=== PATIENT | male | born 1960 | race Caucasian/White ===

== ENCOUNTER 2020-02-21 07:27 | Outpatient (REF) | payer OTHER, SELFPAY | END 2020-02-21 07:28 | disposition home or self-care (01) | LOC: HO.HMGCLDS 07:27 | PROVIDERS: PCP Internal Medicine; Visit Provider Internal Medicine | DX: Z20.828 Contact with and (suspected) exposure to other viral communicable diseases (principal) | CPT/HCPCS: C9803; U0003 ==

== ENCOUNTER 2020-02-28 09:39 | Outpatient (REF) | payer OTHER, SELFPAY ==
[2020-02-28 10:27] LABS: MANUAL DIFF FLAG NO
[2020-02-28 10:36] LABS: Basophils Percent Auto 0.4 % (0-2); Eosinophils Absolute Auto 0.1 X10*3/uL (0.0-0.4); Eosinophils Percent Auto 1.3 % (0-4); Hematocrit 41.7 % (42-52); Hemoglobin 14.7 g/dl (14.0-18.0); Imm Gran Abs Auto 0.03 X10*3/uL (0.00-0.03); Imm Gran Pct Auto 0.4 % (0.0-0.4); Lymphocytes Absolute Auto 2.6 X10*3/uL (1.2-4.9); Lymphocytes Percent Auto 34.7 % (20-40); Mean Corpuscular HGB Conc 35.3 g/dl (31.0-36.0); Mean Corpuscular Hemoglobin 29.7 pg (27.0-33.0); Mean Corpuscular Volume 84.2 fL (80-98); Mean Platelet Volume 10.6 fL (9.4-12.4); Monocytes Absolute Auto 0.5 X10*3/uL (0.1-1.2); Neutrophils Absolute Auto 4.2 X10*3/uL (2.0-8.3); Neutrophils Percent Auto 56.2 % (45-73); Platelet Count 198 X10*3/uL (160-400); Red Blood Count 4.95 X10*6/uL (4.60-5.80); Red Cell Distribution Width 12.5 % (11.0-16.0); White Blood Count 7.5 X10*3/uL (4.8-10.8)
[2020-02-28 10:47] LABS: Alanine Aminotransferase 19 U/L (0-40); Albumin Level 4.4 g/dL (3.5-5.0); Alkaline Phosphatase 89 U/L (39-117); Anion Gap 13 (12-20); Aspartate Amino Transferase 16 U/L (5-37); Bilirubin Total 0.4 mg/dL (0.0-1.0); Blood Urea Nitrogen 16 mg/dL (9-16); Carbon Dioxide 26 mmol/L (22-29); Chloride 104 mmol/L (96-108); Cholesterol 123 mg/dL; Estimated Glomerular Filt Rate > 60; Glucose Fasting 209 mg/dL (60-99); HDL Cholesterol 34 mg/dL; LDL Cholesterol Calculated 70 mg/dl; Potassium 4.6 mmol/l (3.3-5.1); Sodium 138 mmol/L (135-145); Triglycerides 99 mg/dL
[2020-02-28 10:49] LABS: Estimated Average Glucose 212 mg/dL
[2020-02-28 10:54] LABS: Glucose Urine UA 100 MG/DL (NEG); Leukocyte Esterase Urine NEG (NEG); Nitrite Urine NEG (NEG); PH 5.5 (5.0-8.0); Specific Gravity - Urine >= 1.030 (1.005-1.025); Urine Blood NEG (NEG); Urine Ketones NEG (NEG); Urine Protein TRACE MG/DL (NEG-TRACE)
[2020-02-28 10:59] LABS: Appearance Urine CLEAR; Color Urine YELLOW
[2020-02-28 11:09] LABS: Prostate Specific Antigen 0.91 ng/mL (<0.05-4.0); Thyroid Stimulating Hormone 0.55 uIU/mL (0.32-4.0); Vitamin D 25-OH Total 46.6 ng/mL (>30)
[2020-02-28 11:47] LABS: Creatinine Urine 128.98 mg/dL; Microalbum/Creatinine Ratio Ur 147.3 ug/mg cr
== END 2020-02-28 09:40 | disposition home or self-care (01) ==
LOC: HO.LAB 09:39
PROVIDERS: PCP Internal Medicine; Visit Provider Internal Medicine
DX: E11.9 Type 2 diabetes mellitus without complications (principal); I10 Essential (primary) hypertension; I25.10 Atherosclerotic heart disease of native coronary artery without angina pectoris; E78.00 Pure hypercholesterolemia, unspecified; E55.9 Vitamin D deficiency, unspecified; N52.9 Male erectile dysfunction, unspecified
CPT/HCPCS: 36415; 80053; 80061; 81003; 82043; 82306; 83036; 84153; 84443; 85025

== ENCOUNTER 2020-07-21 07:25 | Outpatient (REF) | payer OTHER, SELFPAY ==
[2020-07-21 11:39] LABS: Estimated Average Glucose 243 mg/dL; Hemoglobin A1c % 10.1 %
[2020-07-21 12:02] LABS: Alanine Aminotransferase 29 U/L (0-40); Albumin Level 4.5 g/dL (3.5-5.0); Alkaline Phosphatase 91 U/L (39-117); Anion Gap 14 (12-20); Aspartate Amino Transferase 21 U/L (5-37); Bilirubin Total 0.9 mg/dL (0.0-1.0); Blood Urea Nitrogen 16 mg/dL (9-16); Calcium 9.4 mg/dL (8.4-10.2); Carbon Dioxide 24 mmol/L (22-29); Chloride 102 mmol/L (96-108); Cholesterol 138 mg/dL; Estimated Glomerular Filt Rate > 60; Glucose Fasting 271 mg/dL (60-99); HDL Cholesterol 34 mg/dL; LDL Cholesterol Calculated 62 mg/dl; Potassium 4.1 mmol/L (3.3-5.1); Sodium 136 mmol/L (135-145); Triglycerides 212 mg/dL
[2020-07-21 12:24] LABS: Microalbum/Creatinine Ratio Ur 94.5 ug/mg cr
== END 2020-07-21 07:26 | disposition home or self-care (01) ==
LOC: HO.HMGCLDS 07:25
PROVIDERS: PCP Internal Medicine; Visit Provider Internal Medicine
DX: E11.9 Type 2 diabetes mellitus without complications (principal); I25.10 Atherosclerotic heart disease of native coronary artery without angina pectoris; I10 Essential (primary) hypertension; E78.00 Pure hypercholesterolemia, unspecified
CPT/HCPCS: 36415; 80053; 80061; 82043; 83036

== ENCOUNTER 2020-10-22 06:55 | Outpatient (REF) | payer OTHER, SELFPAY ==
[2020-10-22 11:49] LABS: Estimated Average Glucose 206 mg/dL; Hemoglobin A1c % 8.8 %
[2020-10-22 11:59] LABS: Creatinine Urine 145.41 mg/dL; Glucose Urine UA NEG (NEG); Leukocyte Esterase Urine NEG (NEG); Microalbum/Creatinine Ratio Ur 50.8 ug/mg cr; Nitrite Urine NEG (NEG); Specific Gravity - Urine 1.025 (1.005-1.025); Urine Blood NEG (NEG); Urine Ketones NEG (NEG); Urine Protein NEG (NEG-TRACE)
[2020-10-22 12:05] LABS: Appearance Urine CLEAR; Color Urine YELLOW
[2020-10-22 12:39] LABS: RBC Urine 0 /HPF (0); Squamous Epithelial Cell Urine TRACE /LPF; WBC Urine 0-2 /HPF (0-4)
== END 2020-10-22 06:56 | disposition home or self-care (01) ==
LOC: HO.HMGCLDS 06:55
PROVIDERS: PCP Internal Medicine; Visit Provider Internal Medicine
DX: E11.65 Type 2 diabetes mellitus with hyperglycemia (principal)
CPT/HCPCS: 36415; 81001; 82043; 83036

== ENCOUNTER 2020-10-29 08:57 | Outpatient (REF) | payer OTHER, SELFPAY | END 2020-10-29 08:58 | disposition home or self-care (01) | LOC: HO.HMGCLDS 08:57 | PROVIDERS: PCP Internal Medicine; Visit Provider Internal Medicine | DX: Z20.822 Contact with and (suspected) exposure to COVID-19 (principal) | CPT/HCPCS: C9803; U0003; U0005 ==

== ENCOUNTER 2021-04-23 07:31 | Outpatient (REF) | payer OTHER, SELFPAY ==
[2021-04-23 11:23] LABS: MANUAL DIFF FLAG NO
[2021-04-23 11:28] LABS: Basophils Absolute Auto 0.1 X10*3/uL (0.0-0.2); Basophils Percent Auto 0.6 % (0-2); Eosinophils Absolute Auto 0.1 X10*3/uL (0.0-0.4); Eosinophils Percent Auto 1.2 % (0-4); Hematocrit 42.1 % (42.0-52.0); Hemoglobin 14.4 g/dl (14.0-18.0); Imm Gran Abs Auto 0.07 X10*3/uL (0.00-0.03); Imm Gran Pct Auto 0.9 % (0.0-0.4); Lymphocytes Absolute Auto 2.8 X10*3/uL (1.2-4.9); Lymphocytes Percent Auto 34.3 % (20-40); Mean Corpuscular HGB Conc 34.2 g/dl (31.0-36.0); Mean Corpuscular Hemoglobin 28.9 pg (27.0-33.0); Mean Corpuscular Volume 84.5 fL (80.0-98.0); Mean Platelet Volume 10.8 fL (9.4-12.4); Monocytes Absolute Auto 0.6 X10*3/uL (0.1-1.2); Monocytes Percent Auto 7.8 % (2-11); Neutrophils Absolute Auto 4.5 x10*3/uL (2.0-8.3); Neutrophils Percent Auto 55.2 % (45-73); Platelet Count 215 X10*3/uL (160-400); Red Blood Count 4.98 X10*6/uL (4.60-5.80); Red Cell Distribution Width 12.8 % (11.0-16.0); White Blood Count 8.2 X10*3/uL (4.8-10.8)
[2021-04-23 11:38] LABS: Estimated Average Glucose 223 mg/dL; Hemoglobin A1c % 9.4 %
[2021-04-23 12:02] LABS: Thyroid Stimulating Hormone 0.91 uIU/mL (0.32-4.0); Vitamin D 25-OH Total 41.9 ng/mL (>30)
[2021-04-23 12:03] LABS: Alanine Aminotransferase 20 U/L (0-40); Albumin Level 4.5 g/dL (3.5-5.0); Alkaline Phosphatase 87 U/L (39-117); Anion Gap 16 (12-20); Aspartate Amino Transferase 18 U/L (5-37); Bilirubin Total 0.6 mg/dL (0.0-1.0); Blood Urea Nitrogen 18 mg/dL (9-16); Calcium 9.6 mg/dL (8.4-10.2); Carbon Dioxide 23 mmol/L (22-29); Chloride 103 mmol/L (96-108); Cholesterol 128 mg/dL; Estimated Glomerular Filt Rate > 60; Glucose Fasting 230 mg/dL (60-99); HDL Cholesterol 33 mg/dL; LDL Cholesterol Calculated 59 mg/dl; Potassium 4.5 mmol/L (3.3-5.1); Sodium 137 mmol/L (135-145); Total Protein 7.4 g/dL (6.5-8.0); Triglycerides 180 mg/dL
== END 2021-04-23 07:32 | disposition home or self-care (01) ==
LOC: HO.HMGCLDS 07:31
PROVIDERS: Visit Provider Internal Medicine
DX: E11.65 Type 2 diabetes mellitus with hyperglycemia (principal); I25.10 Atherosclerotic heart disease of native coronary artery without angina pectoris; I10 Essential (primary) hypertension; E78.00 Pure hypercholesterolemia, unspecified; E55.9 Vitamin D deficiency, unspecified
CPT/HCPCS: 36415; 80053; 80061; 82306; 83036; 84443; 85025

== ENCOUNTER 2021-04-24 11:22 | Outpatient (REF) | payer OTHER, SELFPAY ==
[2021-04-24 13:51] LABS: Appearance Urine CLEAR; Color Urine YELLOW; Glucose Urine UA 100 MG/DL (NEG); Leukocyte Esterase Urine NEG (NEG); Nitrite Urine NEG (NEG); PH 5.5 (5.0-8.0); Specific Gravity - Urine >= 1.030 (1.005-1.025); Urine Blood NEG (NEG); Urine Ketones NEG (NEG); Urine Protein 1+ MG/DL (NEG-TRACE)
[2021-04-24 14:04] LABS: Mucus Urine TRACE /LPF; RBC Urine 0 /HPF (0); Squamous Epithelial Cell Urine TRACE /LPF; WBC Urine 0-2 /HPF (0-4)
[2021-04-24 14:12] LABS: Creatinine Urine 139.73 mg/dL; Microalbum/Creatinine Ratio Ur 158.8 ug/mg cr
== END 2021-04-24 11:23 | disposition home or self-care (01) ==
LOC: HO.HMGCLDS 11:22
PROVIDERS: Visit Provider Internal Medicine
DX: E11.65 Type 2 diabetes mellitus with hyperglycemia (principal); I25.10 Atherosclerotic heart disease of native coronary artery without angina pectoris; I10 Essential (primary) hypertension; E78.00 Pure hypercholesterolemia, unspecified
CPT/HCPCS: 81001; 82043

== ENCOUNTER 2021-09-03 10:24 | Day surgery (SDC) | payer OTHER, SELFPAY ==
[2021-08-26 15:30] VITALS: BMI 37.3
[2021-08-26 16:12] VITALS: BMI 36.8
--- NOTE | 2021-09-02 12:37 | P.CONAN_ITS ---
Documented by User: Shital Langley NP 09/02/21 12:38 HPI - Anesthesia Eval Consult details Narrative: 61yo M for [facility] Past Medical History Medical History Anxiety CAD (coronary artery disease) Diabetes HTN (hypertension) Hx of fracture of arm LINA on CPAP Surgical History Surgical History Hx of appendectomy Hx of colonoscopy Hx of heart artery stent Hx of LASIK Hx of sinus surgery Hx of thumb surgery Hx of tonsillectomy Social History Social History Are you a primary care director rn to a significant other at home: No Do you presently have visiting nurse or other home services: No Patient Tobacco Use Status: Former Tobacco user Quit Date: 2016 Tobacco use type: Cigarette Have you been hit, kicked, punched, or otherwise hurt by someone within the past year? If so, by whom?: No Are you DNR?: No Advance Directives: No Advance Directives Information Provided: Yes Advance Directives on File: No Meds Allergies Allergy/AdvReac Type Severity Reaction Status Date / Time No Known Allergies Allergy Verified 09/03/21 10:31 Home Medications Medication Instructions Recorded Confirmed Last Taken Type aspirin 81 mg chewable tablet 81 mg PO DAILY 08/26/21 08/26/21 09/01/21 History bupropion HCl 300 mg 24 hr tablet, 1 tab PO DAILY 08/26/21 08/26/21 Unknown History extended release dulaglutide 0.75 mg/0.5 mL 0.75 mg subcut QWEEK 08/26/21 08/26/21 Unknown History subcutaneous pen injector (Trulicity) lisinopril 40 mg tablet 1 tab PO DAILY 08/26/21 08/26/21 Unknown History metformin 750 mg tablet,extended 1 tab PO DAILY 08/26/21 08/26/21 Unknown History release 24 hr metoprolol succinate 50 mg 1 tab PO DAILY 08/26/21 08/26/21 Unknown History tablet,extended release 24 hr rosuvastatin 20 mg tablet 1 tab PO BEDTIME 08/26/21 08/26/21 Unknown History sertraline 50 mg tablet 1 tab PO DAILY 08/26/21 08/26/21 Unknown History Exam Exam Date and Time: September 02, 2021 1237 Height,Weight and Vital Signs: Height 5 ft 7 in Weight 106.594 kg Pertinent Lab Results Pertinent Lab Results: Laboratory Tests 04/23/21 04/23/21 07:40 07:40 WBC 8.2 Hgb 14.4 Hct 42.1 Plt Count 215 Sodium 137 Potassium 4.5 Chloride 103 Carbon Dioxide 23 BUN 18 H Creatinine 1.10 Assessment and Plan Assessment Anesthesia Assessment: Chart Reviewed Documented by User: Stone Bradley MD 09/03/21 10:48 [facility] Past Medical History Medical History Anxiety CAD (coronary artery disease) Diabetes HTN (hypertension) Hx of fracture of arm LINA on CPAP Family History Family history of problems with anesthesia: No Surgical History Surgical History Hx of appendectomy Hx of colonoscopy Hx of heart artery stent Hx of LASIK Hx of sinus surgery Hx of thumb surgery Hx of tonsillectomy History of Problems with Anesthesia: No Social History Social History Are you a primary care director rn to a significant other at home: No Do you presently have visiting nurse or other home services: No Patient Tobacco Use Status: Former Tobacco user Quit Date: 2016 Tobacco use type: Cigarette Have you been hit, kicked, punched, or otherwise hurt by someone within the past year? If so, by whom?: No Are you DNR?: No Advance Directives: No Advance Directives Information Provided: Yes Advance Directives on File: No Meds Allergies Allergy/AdvReac Type Severity Reaction Status Date / Time No Known Allergies Allergy Verified 09/03/21 10:31 Home Medications Medication Instructions Recorded Confirmed Last Taken Type aspirin 81 mg chewable tablet 81 mg PO DAILY 08/26/21 08/26/21 09/01/21 History bupropion HCl 300 mg 24 hr tablet, 1 tab PO DAILY 08/26/21 08/26/21 Unknown History extended release dulaglutide 0.75 mg/0.5 mL 0.75 mg subcut QWEEK 08/26/21 08/26/21 Unknown History subcutaneous pen injector (Trulicity) lisinopril 40 mg tablet 1 tab PO DAILY 08/26/21 08/26/21 Unknown History metformin 750 mg tablet,extended 1 tab PO DAILY 08/26/21 08/26/21 Unknown History release 24 hr metoprolol succinate 50 mg 1 tab PO DAILY 08/26/21 08/26/21 Unknown History tablet,extended release 24 hr rosuvastatin 20 mg tablet 1 tab PO BEDTIME 08/26/21 08/26/21 Unknown History sertraline 50 mg tablet 1 tab PO DAILY 08/26/21 08/26/21 Unknown History Exam Airway Mallampati Class: III TM Dist: >3cm Neck ROM: Full Assessment and Plan Final Anesthetic Review Family History of Problems with Anesthesia: No History of Problems with Anesthesia: No NPO: Yes ASA Class: III Final Preanesthetic Review: No Changes in Pt Med Stat, Meds/Allgs Chart Reviewed, Consent Obtained/Reviewed and Anes Risks/Benef Reviewed Patient Risk: Intermediate Procedure Risk: Low Anesthetic Plan Anesthetic Plan: MAC: Disposition: Standard PACU
--- NOTE | 2021-09-03 10:55 | MHC.SHP ---
Pre-Procedural Eval Section A Date of Service: 09/03/21 The patient is an INPATIENT: No Changes since office visit: No Cold of Flu in the past 2 weeks, No New Medical Problems, No Changes in Medication and No Patient answered all questions The History & Physical has been completed within 30 days and I have reviewed it.: Yes Section B Chief Complaint: screening Allergies: Allergies Allergy/AdvReac Type Severity Reaction Status Date / Time No Known Allergies Allergy Verified 09/03/21 10:31 Plan I have reviewed the history and physical and performed a pertinent physical examination on my patient. No changes have occurred unless specified.
[2021-09-03 10:59] VITALS: BP 140/95; PULSE 89; RESP 17; TEMP 36.1; O2SAT 98
[2021-09-03] MEDS: Lactated Ringers 1,000 ML 100 ML IVCONT (11:07)
--- NOTE | 2021-09-03 11:40 | PM.OP ---
Brief Operative Note Date of Service: 09/03/21 Pre-op diagnosis: screening Post-op diagnosis: same Procedure: colonoscopy Surgeon: Jesse Sharma Anesthesia: MAC Was an Shipping And Receiving Associate used for this Procedure?: No Estimated blood loss (mL): 0 Pathology: none sent Condition: stable Disposition: PACU
[2021-09-03 11:43] VITALS: BP 104/61; PULSE 86; RESP 16; TEMP 37.4; O2SAT 98
[2021-09-03 11:44] LABS: Glucose, Whole Blood 121 mg/dL (60-115)
[2021-09-03 11:58] VITALS: BP 133/76; PULSE 67; RESP 16; TEMP 37.4; O2SAT 96
--- NOTE | 2021-09-03 12:54 | OP_ITS ---
SURGEON: Jesse Sharma MD INDICATIONS: Colon cancer screening. PREOPERATIVE DIAGNOSIS: POSTOPERATIVE DIAGNOSIS: PROCEDURE PERFORMED: Colonoscopy to cecum. ESTIMATED BLOOD LOSS: COMPLICATIONS: ANESTHESIA: ASSISTANTS: SPECIMENS: MEDICATIONS: Monitored anesthesia care. DESCRIPTION OF PROCEDURE: History and physical were performed. The risks and benefits of the procedure were explained to the patient. Informed consent was obtained. The patient was placed in a left lateral decubitus position. A digital rectal exam was performed and was found to be normal. The Olympus pediatric video colonoscope was introduced into the rectum and advanced to the cecum without difficulty. The cecum was identified by transillumination, palpation, and identification of ileocecal valve. Examination was performed and the scope was removed. He tolerated the procedure well was taken to recovery area in stable condition. FINDINGS: The terminal ileum was not examined. Views of the cecum were somewhat limited by some undigested food material. This was washed and suctioned as best possible. No polyps were identified. The mucosa of the colon was normal. The quality of the prep was otherwise good. Retroflexed examination showed some small internal hemorrhoids. IMPRESSION: Negative screening colonoscopy. RECOMMENDATION: 1. Follow up as needed. 2. Repeat colonoscopy is recommended in 10 years for average risk individuals. MD HOLDEN Rider/RADHA / [id number] MTDD
== END 2021-09-03 12:18 | disposition home or self-care (01) ==
PROVIDERS: PCP Internal Medicine; Visit Provider Internal Medicine Gastroenterology
PROC: 0DJD8ZZ Inspection of Lower Intestinal Tract, Via Natural or Artificial Opening Endoscopic (ICD-10-PCS; CPT 45378; principal; 2021-09-03 11:20)
DX: Z12.11 Encounter for screening for malignant neoplasm of colon (principal); K64.8 Other hemorrhoids; I25.10 Atherosclerotic heart disease of native coronary artery without angina pectoris; Z98.61 Coronary angioplasty status; I10 Essential (primary) hypertension; G47.33 Obstructive sleep apnea (adult) (pediatric); E11.9 Type 2 diabetes mellitus without complications; Z79.84 Long term (current) use of oral hypoglycemic drugs; Z79.899 Other long term (current) drug therapy; Z87.891 Personal history of nicotine dependence
CPT/HCPCS: 45378; 82947

== ENCOUNTER 2021-10-04 07:22 | Outpatient (REF) | payer OTHER, SELFPAY ==
[2021-10-04 11:39] LABS: Alanine Aminotransferase 21 U/L (0-40); Albumin Level 4.5 g/dL (3.5-5.0); Alkaline Phosphatase 92 U/L (39-117); Anion Gap 11 (12-20); Aspartate Amino Transferase 18 U/L (5-37); Bilirubin Total 0.2 mg/dL (0.0-1.0); Blood Urea Nitrogen 27 mg/dL (9-16); Calcium 9.5 mg/dL (8.4-10.2); Carbon Dioxide 24 mmol/L (22-29); Chloride 106 mmol/L (96-108); Estimated Glomerular Filt Rate > 60; Glucose Fasting 199 mg/dL (60-99); Potassium 4.3 mmol/L (3.3-5.1); Sodium 137 mmol/L (135-145); Total Protein 7.2 g/dL (6.5-8.0)
[2021-10-04 11:45] LABS: Estimated Average Glucose 151 mg/dL; Hemoglobin A1c % 6.9 %
[2021-10-04 11:47] LABS: Appearance Urine TURBID; Color Urine YELLOW; Glucose Urine UA NEG (NEG); Leukocyte Esterase Urine NEG (NEG); Nitrite Urine NEG (NEG); Specific Gravity - Urine >= 1.030 (1.005-1.025); Urine Blood NEG (NEG); Urine Ketones NEG (NEG); Urine Protein NEG (NEG-TRACE)
[2021-10-04 12:00] LABS: Prostate Specific Antigen 1.02 ng/mL (<0.05-4.0)
[2021-10-04 12:35] LABS: Creatinine Urine 148.59 mg/dL; Microalbum/Creatinine Ratio Ur 56.5 ug/mg cr
[2021-10-04 13:40] LABS: Calcium Oxalate Crystals Urine 1+ /LPF
[2021-10-04 13:41] LABS: Amorphous Sediment Urine 4+ /LPF; WBC Urine 0 /HPF (0-4)
[2021-10-04 13:42] LABS: Bacteria Urine TRACE /LPF; RBC Urine 0 /HPF (0)
== END 2021-10-04 07:23 | disposition home or self-care (01) ==
LOC: HO.HMGCLDS 07:22
PROVIDERS: Visit Provider Internal Medicine
DX: Z12.5 Encounter for screening for malignant neoplasm of prostate (principal); E11.65 Type 2 diabetes mellitus with hyperglycemia
CPT/HCPCS: 36415; 80053; 81001; 82043; 83036; 84153

== ENCOUNTER 2022-03-11 18:06 | Outpatient (REF) | payer OTHER, SELFPAY ==
[2022-03-11 20:22] LABS: Influenza A PCR NEGATIVE (Negative); Influenza B PCR NEGATIVE (Negative); Resp Syncy Virus RNA Qual PCR NEGATIVE (Negative); SARS COV2 PCR INHOUSE NEGATIVE (Negative)
== END 2022-03-11 18:07 | disposition home or self-care (01) ==
LOC: HO.LAB 18:06
PROVIDERS: Visit Provider Physician Assistant Medical
DX: R05.9 Cough, unspecified (principal); Z20.822 Contact with and (suspected) exposure to COVID-19
CPT/HCPCS: 0241U

== ENCOUNTER 2022-03-24 07:02 | Outpatient (REF) | payer OTHER, SELFPAY ==
[2022-03-24 11:12] LABS: MANUAL DIFF FLAG NO
[2022-03-24 11:21] LABS: Basophils Absolute Auto 0.1 X10*3/uL (0.0-0.2); Basophils Percent Auto 0.6 % (0-2); Eosinophils Absolute Auto 0.2 X10*3/uL (0.0-0.4); Eosinophils Percent Auto 1.6 % (0-4); Hematocrit 43.6 % (42.0-52.0); Hemoglobin 14.4 g/dl (14.0-18.0); Lymphocytes Absolute Auto 3.5 X10*3/uL (1.2-4.9); Lymphocytes Percent Auto 33.9 % (20-40); Mean Corpuscular Hemoglobin 28.3 pg (27.0-33.0); Mean Corpuscular Volume 85.8 fL (80.0-98.0); Mean Platelet Volume 10.4 fL (9.4-12.4); Monocytes Absolute Auto 0.7 X10*3/uL (0.1-1.2); Monocytes Percent Auto 7.2 % (2-11); Neutrophils Absolute Auto 5.7 x10*3/uL (2.0-8.3); Neutrophils Percent Auto 55.7 % (45-73); Platelet Count 239 X10*3/uL (160-400); Red Blood Count 5.08 X10*6/uL (4.60-5.80); White Blood Count 10.2 X10*3/uL (4.8-10.8)
[2022-03-24 11:39] LABS: Appearance Urine Clear; Color Urine Yellow; Glucose Urine UA Negative (Negative); Leukocyte Esterase Urine Negative (Negative); Nitrite Urine Negative (Negative); PH 5.5 (5.0-9.0); Specific Gravity - Urine 1.025 (1.005-1.025); UMIC TRIGGER UA YES; Urine Blood Negative (Negative); Urine Ketones Negative (Negative); Urine Protein 100 (2+) mg/dL (Neg-Trace)
[2022-03-24 11:42] LABS: Estimated Average Glucose 203 mg/dL; Hemoglobin A1c % 8.7 %
[2022-03-24 11:43] LABS: Bacteria Urine None Seen (None Seen); RBC Urine 0-2 /HPF (0-2); Squamous Epithelial Cell Urine 0-2 /HPF (0-2); WBC Urine 0-5 /HPF (0-5)
[2022-03-24 13:09] LABS: Anion Gap 14 (12-20); Blood Urea Nitrogen 19 mg/dL (9-16); Calcium 9.9 mg/dL (8.4-10.2); Carbon Dioxide 26 mmol/L (22-29); Chloride 103 mmol/L (96-108); Cholesterol 119 mg/dL; Estimated Glomerular Filt Rate > 60; Glucose Fasting 170 mg/dL (60-99); HDL Cholesterol 31 mg/dL; LDL Cholesterol Calculated 59 mg/dl; Potassium 4.7 mmol/L (3.3-5.1); Sodium 138 mmol/L (135-145); Triglycerides 146 mg/dL
[2022-03-24 13:19] LABS: Creatinine Urine 209.56 mg/dL; Microalbum/Creatinine Ratio Ur 210.4 ug/mg cr
[2022-03-24 13:27] LABS: Thyroid Stimulating Hormone 1.11 uIU/mL (0.32-4.0); Vitamin D 25-OH Total 47.9 ng/mL (>30)
== END 2022-03-24 07:03 | disposition home or self-care (01) ==
LOC: HO.HMGCLDS 07:02
PROVIDERS: PCP Internal Medicine; Visit Provider Internal Medicine
DX: I10 Essential (primary) hypertension (principal); E78.00 Pure hypercholesterolemia, unspecified; I25.10 Atherosclerotic heart disease of native coronary artery without angina pectoris; E55.9 Vitamin D deficiency, unspecified; E11.65 Type 2 diabetes mellitus with hyperglycemia
CPT/HCPCS: 36415; 80048; 80061; 81001; 82043; 82306; 83036; 84443; 85025

== ENCOUNTER 2022-06-17 07:15 | Outpatient (REF) | payer OTHER, SELFPAY ==
[2022-06-17 11:53] LABS: Appearance Urine Turbid; Color Urine Yellow; Glucose Urine UA Negative (Negative); Leukocyte Esterase Urine Negative (Negative); Nitrite Urine Negative (Negative); PH 5.5 (5.0-9.0); Specific Gravity - Urine 1.025 (1.005-1.025); UMIC TRIGGER UA YES; Urine Blood Negative (Negative); Urine Ketones Negative (Negative); Urine Protein 100 (2+) mg/dL (Neg-Trace)
[2022-06-17 11:56] LABS: Bacteria Urine None Seen (None Seen); Hyaline Casts Urine 0-2 /LPF (0-2); RBC Urine 0-2 /HPF (0-2); Squamous Epithelial Cell Urine 0-2 /HPF (0-2); WBC Urine 0-5 /HPF (0-5)
[2022-06-17 12:08] LABS: Alanine Aminotransferase 28 U/L (0-40); Albumin Level 4.5 g/dL (3.5-5.0); Alkaline Phosphatase 88 U/L (39-117); Anion Gap 14 (12-20); Aspartate Amino Transferase 25 U/L (5-37); Bilirubin Total 0.5 mg/dL (0.0-1.0); Blood Urea Nitrogen 22 mg/dL (9-16); Calcium 9.7 mg/dL (8.4-10.2); Carbon Dioxide 24 mmol/L (22-29); Chloride 105 mmol/L (96-108); Cholesterol 124 mg/dL; Estimated Glomerular Filt Rate > 60; Glucose Fasting 184 mg/dL (60-99); HDL Cholesterol 32 mg/dL; LDL Cholesterol Calculated 56 mg/dl; Potassium 4.5 mmol/L (3.3-5.1); Sodium 138 mmol/L (135-145); Total Protein 7.1 g/dL (6.5-8.0); Triglycerides 182 mg/dL
[2022-06-17 12:10] LABS: Estimated Average Glucose 180 mg/dL; Hemoglobin A1c % 7.9 %
[2022-06-17 12:35] LABS: Creatinine Urine 174.96 mg/dL; Microalbum/Creatinine Ratio Ur 216.6 ug/mg cr
== END 2022-06-17 07:16 | disposition home or self-care (01) ==
LOC: HO.HMGCLDS 07:15
PROVIDERS: PCP Internal Medicine; Visit Provider Internal Medicine
DX: E11.65 Type 2 diabetes mellitus with hyperglycemia (principal)
CPT/HCPCS: 36415; 80053; 80061; 81001; 82043; 83036

== ENCOUNTER 2022-09-20 07:03 | Outpatient (REF) | payer OTHER, SELFPAY ==
[2022-09-20 11:24] LABS: Appearance Urine Clear; Color Urine Yellow; Glucose Urine UA Negative (Negative); Leukocyte Esterase Urine Negative (Negative); Nitrite Urine Negative (Negative); PH 5.5 (5.0-9.0); Specific Gravity - Urine 1.025 (1.005-1.025); UMIC TRIGGER UA YES; Urine Blood Negative (Negative); Urine Ketones Trace mg/dL (Negative); Urine Protein 30 (1+) mg/dL (Neg-Trace)
[2022-09-20 11:28] LABS: Bacteria Urine None Seen (None Seen); Hyaline Casts Urine 0-2 /LPF (0-2); RBC Urine 0-2 /HPF (0-2); Squamous Epithelial Cell Urine 0-2 /HPF (0-2); WBC Urine 0-5 /HPF (0-5)
[2022-09-20 11:41] LABS: Estimated Average Glucose 143 mg/dL; Hemoglobin A1c % 6.6 %
[2022-09-20 12:05] LABS: Creatinine Urine 192.66 mg/dL; Microalbum/Creatinine Ratio Ur 130.2 ug/mg cr
[2022-09-20 12:15] LABS: Alanine Aminotransferase 26 U/L (0-40); Albumin Level 4.2 g/dL (3.5-5.0); Alkaline Phosphatase 79 U/L (39-117); Anion Gap 15 (12-20); Aspartate Amino Transferase 19 U/L (5-37); Bilirubin Total 0.4 mg/dL (0.0-1.0); Blood Urea Nitrogen 16 mg/dL (9-16); Calcium 10.2 mg/dL (8.4-10.2); Carbon Dioxide 21 mmol/L (22-29); Chloride 107 mmol/L (96-108); Estimated Glomerular Filt Rate > 60; Glucose Fasting 158 mg/dL (60-99); Sodium 139 mmol/L (135-145)
== END 2022-09-20 07:04 | disposition home or self-care (01) ==
LOC: HO.HMGCLDS 07:03
PROVIDERS: PCP Internal Medicine; Visit Provider Internal Medicine
DX: E11.65 Type 2 diabetes mellitus with hyperglycemia (principal)
CPT/HCPCS: 36415; 80053; 81001; 82043; 83036

== ENCOUNTER 2022-12-29 07:22 | Outpatient (REF) | payer OTHER, SELFPAY ==
[2022-12-29 11:23] LABS: Appearance Urine Clear; Color Urine Yellow; Glucose Urine UA Negative (Negative); Leukocyte Esterase Urine Negative (Negative); Nitrite Urine Negative (Negative); UMIC TRIGGER UA YES; Urine Blood Negative (Negative); Urine Ketones Negative (Negative); Urine Protein 30 (1+) mg/dL (Neg-Trace)
[2022-12-29 11:27] LABS: Bacteria Urine None Seen (None Seen); RBC Urine 0-2 /HPF (0-2); Squamous Epithelial Cell Urine 0-2 /HPF (0-2); WBC Urine 0-5 /HPF (0-5)
[2022-12-29 11:31] LABS: Estimated Average Glucose 143 mg/dL; Hemoglobin A1c % 6.6 % (<6.0)
[2022-12-29 12:25] LABS: Alanine Aminotransferase 28 U/L (0-40); Albumin Level 4.5 g/dL (3.5-5.0); Alkaline Phosphatase 79 U/L (39-117); Anion Gap 13 (12-20); Aspartate Amino Transferase 27 U/L (5-37); Bilirubin Total 0.7 mg/dL (0.0-1.0); Blood Urea Nitrogen 16 mg/dL (9-16); Carbon Dioxide 24 mmol/L (22-29); Chloride 105 mmol/L (96-108); Estimated Glomerular Filt Rate > 60; Glucose Fasting 139 mg/dL (60-99); Potassium 4.1 mmol/L (3.3-5.1); Sodium 138 mmol/L (135-145); Total Protein 7.6 g/dL (6.5-8.0)
[2022-12-29 13:35] LABS: Creatinine Urine 166.01 mg/dL; Microalbum/Creatinine Ratio Ur 165.6 ug/mg cr (<30)
== END 2022-12-29 07:23 | disposition home or self-care (01) ==
LOC: HO.HMGCLDS 07:22
PROVIDERS: PCP Internal Medicine; Visit Provider Internal Medicine
DX: E11.9 Type 2 diabetes mellitus without complications (principal); I10 Essential (primary) hypertension; E78.00 Pure hypercholesterolemia, unspecified; I25.10 Atherosclerotic heart disease of native coronary artery without angina pectoris; E55.9 Vitamin D deficiency, unspecified; F32.9 Major depressive disorder, single episode, unspecified; N52.9 Male erectile dysfunction, unspecified
CPT/HCPCS: 36415; 80053; 81001; 82043; 82570; 83036

== ENCOUNTER 2023-06-26 06:48 | Outpatient (REF) | payer OTHER, SELFPAY ==
[2023-06-26 10:26] LABS: MANUAL DIFF FLAG NO
[2023-06-26 10:30] LABS: Basophils Percent Auto 0.5 % (0-2); Eosinophils Absolute Auto 0.1 X10*3/uL (0.0-0.4); Eosinophils Percent Auto 1.6 % (0-4); Hematocrit 41.9 % (42.0-52.0); Hemoglobin 14.1 g/dl (14.0-18.0); Imm Gran Abs Auto 0.03 X10*3/uL (0.00-0.03); Imm Gran Pct Auto 0.4 % (0.0-0.4); Lymphocytes Absolute Auto 2.7 X10*3/uL (1.2-4.9); Lymphocytes Percent Auto 35.5 % (20-40); Mean Corpuscular HGB Conc 33.7 g/dl (31.0-36.0); Mean Corpuscular Volume 86.2 fL (80.0-98.0); Mean Platelet Volume 11.4 fL (9.4-12.4); Monocytes Absolute Auto 0.5 X10*3/uL (0.1-1.2); Monocytes Percent Auto 7.1 % (2-11); Neutrophils Absolute Auto 4.2 x10*3/uL (2.0-8.3); Neutrophils Percent Auto 54.9 % (45-73); Platelet Count 200 X10*3/uL (160-400); Red Blood Count 4.86 X10*6/uL (4.60-5.80); Red Cell Distribution Width 13.8 % (11.0-16.0); White Blood Count 7.6 X10*3/uL (4.8-10.8)
[2023-06-26 10:42] LABS: Estimated Average Glucose 140 mg/dL; Hemoglobin A1c % 6.5 % (<6.0)
[2023-06-26 10:55] LABS: Alanine Aminotransferase 18 U/L (0-40); Albumin Level 4.3 g/dL (3.5-5.0); Alkaline Phosphatase 67 U/L (39-117); Anion Gap 12 (12-20); Aspartate Amino Transferase 19 U/L (5-37); Bilirubin Total 0.7 mg/dL (0.0-1.0); Blood Urea Nitrogen 21 mg/dL (9-16); Calcium 9.9 mg/dL (8.4-10.2); Carbon Dioxide 25 mmol/L (22-29); Chloride 107 mmol/L (96-108); Cholesterol 102 mg/dL (<200); Estimated Glomerular Filt Rate > 60; Glucose Fasting 120 mg/dL (60-99); HDL Cholesterol 37 mg/dL (>40); LDL Cholesterol Calculated 49 mg/dL (<100); Sodium 140 mmol/L (135-145); Total Protein 7.1 g/dL (6.5-8.0); Triglycerides 84 mg/dL (<150)
[2023-06-26 11:04] LABS: Appearance Urine Clear; Color Urine Yellow; Glucose Urine UA Negative (Negative); Leukocyte Esterase Urine Negative (Negative); Nitrite Urine Negative (Negative); PH 5.5 (5.0-9.0); Urine Blood Negative (Negative); Urine Ketones Negative (Negative); Urine Protein Trace mg/dL (Neg-Trace)
[2023-06-26 11:05] LABS: PSA,Total (Free>4and<10) 1.03 ng/mL (0.00-4.00)
[2023-06-26 11:07] LABS: Bacteria Urine None Seen (None Seen); Hyaline Casts Urine 0-2 /LPF (0-2); RBC Urine 0-2 /HPF (0-2); Squamous Epithelial Cell Urine 0-2 /HPF (0-2); WBC Urine 0-5 /HPF (0-5)
[2023-06-26 11:12] LABS: Vitamin D 25-OH Total 67.8 ng/mL (>30)
[2023-06-26 11:14] LABS: Creatinine Urine 109.24 mg/dL; Microalbum/Creatinine Ratio Ur 122.6 ug/mg cr (<30)
== END 2023-06-26 06:49 | disposition home or self-care (01) ==
LOC: HO.HMGCLDS 06:48
PROVIDERS: PCP Internal Medicine; Visit Provider Internal Medicine
DX: Z12.5 Encounter for screening for malignant neoplasm of prostate (principal); I10 Essential (primary) hypertension; E78.00 Pure hypercholesterolemia, unspecified; I25.10 Atherosclerotic heart disease of native coronary artery without angina pectoris; E11.9 Type 2 diabetes mellitus without complications; E55.9 Vitamin D deficiency, unspecified
CPT/HCPCS: 36415; 80053; 80061; 81001; 82043; 82306; 82570; 83036; 84153; 84443; 85025

== ENCOUNTER 2024-01-17 07:34 | Outpatient (REF) | payer OTHER, SELFPAY ==
[2024-01-17 10:07] LABS: MANUAL DIFF FLAG NO
[2024-01-17 10:19] LABS: Basophils Absolute Auto 0.1 X10*3/uL (0.0-0.2); Basophils Percent Auto 0.6 % (0-2); Eosinophils Absolute Auto 0.1 X10*3/uL (0.0-0.4); Eosinophils Percent Auto 1.1 % (0-4); Hematocrit 39.6 % (42.0-52.0); Hemoglobin 14.1 g/dl (14.0-18.0); Imm Gran Abs Auto 0.05 X10*3/uL (0.00-0.03); Imm Gran Pct Auto 0.6 % (0.0-0.4); Lymphocytes Absolute Auto 2.3 X10*3/uL (1.2-4.9); Lymphocytes Percent Auto 27.6 % (20-40); Mean Corpuscular HGB Conc 35.6 g/dl (31.0-36.0); Mean Corpuscular Hemoglobin 30.3 pg (27.0-33.0); Mean Platelet Volume 10.5 fL (9.4-12.4); Monocytes Absolute Auto 0.5 X10*3/uL (0.1-1.2); Monocytes Percent Auto 6.2 % (2-11); Neutrophils Absolute Auto 5.4 x10*3/uL (2.0-8.3); Neutrophils Percent Auto 63.9 % (45-73); Platelet Count 230 X10*3/uL (160-400); Red Blood Count 4.66 X10*6/uL (4.60-5.80); Red Cell Distribution Width 12.4 % (11.0-16.0); White Blood Count 8.5 X10*3/uL (4.8-10.8)
[2024-01-17 10:19] LABS: Appearance Urine Clear; Color Urine Yellow; Glucose Urine UA Negative (Negative); Leukocyte Esterase Urine Negative (Negative); Nitrite Urine Negative (Negative); UMIC TRIGGER UA YES; Urine Blood Negative (Negative); Urine Ketones Negative (Negative); Urine Protein 30 (1+) mg/dL (Neg-Trace)
[2024-01-17 10:22] LABS: Bacteria Urine None Seen (None Seen); RBC Urine 0-2 /HPF (0-2); Squamous Epithelial Cell Urine 0-2 /HPF (0-2); WBC Urine 0-5 /HPF (0-5)
[2024-01-17 10:30] LABS: Estimated Average Glucose 134 mg/dL; Hemoglobin A1C 166.1621 umol/L; Hemoglobin A1c % 6.3 % (<6.0)
[2024-01-17 10:39] LABS: Alanine Aminotransferase 32 U/L (0-40); Albumin Level 4.2 g/dL (3.5-5.0); Alkaline Phosphatase 77 U/L (39-117); Anion Gap 13 (12-20); Aspartate Amino Transferase 34 U/L (5-37); Bilirubin Total 0.4 mg/dL (0.0-1.0); Blood Urea Nitrogen 17 mg/dL (9-16); Calcium 9.7 mg/dL (8.4-10.2); Carbon Dioxide 22 mmol/L (22-29); Chloride 108 mmol/L (96-108); Cholesterol 124 mg/dL (<200); Estimated Glomerular Filt Rate > 60; Glucose Fasting 138 mg/dL (60-99); HDL Cholesterol 33 mg/dL (>40); LDL Cholesterol Calculated 51 mg/dL (<100); Potassium 4.2 mmol/L (3.3-5.1); Sodium 139 mmol/L (135-145); Total Protein 7.3 g/dL (6.5-8.0); Triglycerides 200 mg/dL (<150)
[2024-01-17 11:16] LABS: Creatinine Urine 192.93 mg/dL; Microalbum/Creatinine Ratio Ur 160.6 ug/mg cr (<30)
== END 2024-01-17 07:35 | disposition home or self-care (01) ==
LOC: HO.HMGCLDS 07:34
PROVIDERS: PCP Internal Medicine; Visit Provider Internal Medicine
DX: I10 Essential (primary) hypertension (principal); E78.00 Pure hypercholesterolemia, unspecified; I25.10 Atherosclerotic heart disease of native coronary artery without angina pectoris; E11.9 Type 2 diabetes mellitus without complications; E55.9 Vitamin D deficiency, unspecified
CPT/HCPCS: 36415; 80053; 80061; 81001; 82043; 82570; 83036; 85025

== ENCOUNTER 2024-04-23 15:11 | Outpatient (AMB) | payer OTHER, SELFPAY ==
--- NOTE | 2024-04-23 15:16 | A.OFFPC_ITS ---
Vital Signs 04/23/24 15:32 Height 5 ft 5.25 in Weight 227 lb BMI 37.5 BP 147/70 H Blood Pressure Location Rt brachial Pulse 82 Pulse Source Pulse Oximeter Temp 97.2 F Pulse Oximetry (%) 97 Intake Visit Reasons: 3 month follow up Intake Note: right hand shakes going on for about 6 months it comes and goes Allergies No Known Allergies Allergy (Verified 04/24/24 06:04) Medication List - Last Reconciled 04/24/24 by Law Leong MD aspirin 81 mg PO DAILY bupropion HCl XL 1 tab PO DAILY diclofenac sodium 75 mg PO BID PRN dulaglutide (Trulicity) 0.75 mg subcut QWEEK lisinopril 1 tab PO DAILY metformin ER 1 tab PO DAILY metoprolol succinate ER 1 tab PO DAILY rosuvastatin 1 tab PO BEDTIME HPI 3 month follow up HPI Details 63-year-old male presents to the office to discuss his chronic medical conditions. Patient has history of hypertension, diabetes and elevated cholesterol. He is compliant with all medications and reporting no side effects. Able to function and do all activities of daily living. Over the past few months patient is reporting a slight tremor in the right hand. He has noticed that his handwriting is getting worse. However he is able to button his shirts, comb his hair, shave with no difficulty. He is able to eat with utensils. No difficulty walking. He reports no history of fall. [facility] Medical History (Updated 04/24/24 @ 06:11 by Law Leong MD) Anxiety LINA on CPAP Hx of fracture of arm Diabetes CAD (coronary artery disease) HTN (hypertension) Surgical History Hx of colonoscopy Hx of sinus surgery Hx of thumb surgery Hx of LASIK Hx of tonsillectomy Hx of appendectomy Hx of heart artery stent Social History Are you a primary health care legal assistant to a significant other at home: No Do you presently have visiting nurse or other home services: No Patient Tobacco Use Status: Former Tobacco user Tobacco use type: Cigarette Physical exam (Primary Care) Vital Signs: Last Vital Signs Temp 97.2 F 04/23/24 15:32 Pulse 82 02/11/25 15:32 BP 147/70 H 04/23/24 15:32 Pulse Ox 97 04/23/24 15:32 BMI result Body Mass Index 37.5 Tobacco/Smoking Status: Tobacco use Status Patient Tobacco Use Status Former Tobacco user 04/23/24 15:34 Tobacco use type Cigarette 04/23/24 15:34 Const General: cooperative and healthy appearing Nutritional Appearance: well nourished Orientation/consciousness: patient oriented x3 Limitations: no limitations HENMT Head: Yes normal to inspection Eyes General: appearance normal, both eyes and all related structures Neck Neck: Yes normal visual inspection Chest Chest palpation & inspection: normal palpation of entire chest wall Resp Effort & Inspection: normal respiratory effort Neuro Other: Patient was asked to stretches hands out and keep the hands facing downwards. Fine tremor in the right hand noticed. General: patient oriented x3 Cranial nerves: Yes CN's II-XII intact bilaterally Cognition (Neuro): normal cognition Gait exam (Neuro): Normal gait present Motor exam (neuro): 5/5 motor strength present throughout Coding Level of Care Code New Pt Level 4 (19232) Complex EM visit Add On G2211 Diagnoses Anxiety F41.9 HTN (hypertension) I10 Diabetes E11.9 LINA on CPAP G47.33; Z99.89 Assessment & Plan Assessment & Plan (1) Anxiety: Code(s): F41.9 - Anxiety disorder, unspecified Category: Medical Plan: Continue medications at same dosage. (2) HTN (hypertension): Code(s): I10 - Essential (primary) hypertension Category: Medical Plan: Blood pressure is stable. Continue medications at same dosage. (3) Diabetes: Code(s): E11.9 - Type 2 diabetes mellitus without complications Category: Medical Plan: A1c is in range. Continue medications at same dosage. (4) LINA on CPAP: Code(s): G47.33 - Obstructive sleep apnea (adult) (pediatric); Z99.89 - Dependence on other enabling machines and devices Category: Medical Plan: Patient has adjusted well to the CPAP. To continue the same.
[2024-04-23 15:32] VITALS: BP 147/70; PULSE 82; TEMP 36.2; O2SAT 97; BMI 37.5
--- OUTSIDE RECORDS SUMMARY | 2024-04-23 15:58 | XMS_ITS ---
[facility] Address [address] [place] [address] Care Team Providers Care Slip Sheeter Name Role Phone Vito Campuzano MD Primary Care Provider Unavail able Black, Angelic Unavailable [phone] Allergies No Known Allergies REASON FOR VISIT Pcp- 02/02, Open sore - Toe Medications Medication SIG (Take, Route, Frequency, Duration) Notes Start Date End Date Status Toprol XL 50 MG 1 tablet Orally Once a day Active buPROPion HCl Active Crestor 20 MG 1 tablet Orally Once a day Active Lisinopril 40 MG 1 tablet Orally Once a day Active Aspirin 81 MG 1 tablet Orally Once a day Active Cephalexin 500 MG 1 capsule Orally twi ce a day for 10 days 03/16/2023 Not-Taking metFORMIN HCl Active Trulicity 3 MG/0.5ML as directed Subcutaneous Active Social History Tobacco Use: Social History Observation Description Date Details (start date - stop date) Former Smoker NA - NA Tobacco Use/Smoking Question Answer Notes Are you a: former smoker Additional Findings: Tobacco Non-User Current no n-smoker Alcohol Screen Question Answer Notes Did you have a drink contain ing alcohol in the past year? Yes How often did you have a dri nk containing alcohol in the past year? 2 to 4 times a month (2 points) Points 2 Interpretation Negative Tobacco use other than smoking: Question Answer Notes Are you an other tobacco user? No Problems Problem Type SNOMED Code ICD Code Onset Dates Problem Status W/U Status Risk Notes Problem Ulcer of toe of right foot (disorder) ([id number]) Skin ulcer of toe of right foot, limited to breakdown of skin (L97.511) Active confirmed Nonapplicable Vital Signs Height 5 ft 6 in in 03/30/2023 Weight 230 lbs 03/30/2023 BMI 37.12 kg/m2 03/30/2023 Blood pressure systolic 122 mm Hg 03/30/19 24 Blood pressure diastolic 82 mm Hg 024 Procedures Procedure Date Ordered Date Performed Result Body Sit e 89614- Debride <25 sq cm 03/30/2023 N/A Encounters Encounter Location Date Provider Diagnosis [facility] [address] [address] 03/30/2023 Angelic Ti Skin ulcer of toe of right foot, limited to breakdown of skin L97.511 Assessments Encounter Date Diagnosis (ICD Code) Assessment Notes Treatment Notes Treatment Clinical Notes Section Notes 03/30/2023 Skin ulcer of toe of right foot, limited to breakdown of skin (ICD-10 - L97.511) Nonapplicable Patient Educated with: WOUND CARE INSTRUCTIONS.p df (WOUND CARE INSTRUCTIONS.p df) 03/30/2023 Other Plan Of Treatment Treatment Notes Assessment Notes Skin ulcer of toe of right f oot, limited to breakdown of skin Patient Educated with: WOUND CARE INSTRUCTIONS.pdf (WOUND CARE INSTRUCTIONS.pdf) Pending Test Test Name Order Date 14054- Debride <25 sq cm 03/30/2023 Next Appt Details Follow Up: prn, Reason: Procedure Notes * Category Sub-Category Detail Notes Debride skin< 25 sq cm Open wound Physician of record performed open wound selective debridement of first 25 sq cm or less, of devitilized necrotic/nonviable soft tissue, fibrin, and exudate extending from the epidermis through the dermis, utilizing sharp dissection with sterile 15 blade, and/or tissue nippers. Sterile antibiotic dressing applied, ANESTHESIA- was accomplished TOPICALLY with Lidocaine Hydrochloride Jelly 2 percent. Hemostasis was achieved through direct pressure. Post debridement measurements:4 mm x 3 mm x 2 mm. Character of the wound post debridement is stable (38090) Progress Notes * Yury HADDAD MDOB: 2 (62 yo M)Acc No.[id number]:03/30/2023 Progress Notes Patient:?Yury Haddad Provider:?Angelic Luke DPM :1960???Age:62 Y???Sex:Male Jared e:03/30/2023 Address:[address] [place] [address] [id number] Pcp:Vito Campuzano MD Subjective: * Chief Complaints: * ???Pcp- 02/02Open sore - Toe * HPI: ???Skin problems:?Treatments:?Topical abx , soaks.? * Medical History:? * Surgical History:?Orthopedic Surgery appendectomy trigger finger release vasectomy torn bicept Ingrown Toe Nail * Hospitalization/Major Diagno stic Procedure:?Denies Past Hospitalization * Family History:?Mother: chapin barboza.?Father: , heart attack.? * Social History:?Tobacco Use:?Tobacco Use/Smoking?Are you a:?former smoker ?Additional Findings: Tobacco Non-User?Current non-smoker ?Tobacco use other than smoking?Are you an other tobacco user??No ???Drugs/Alcohol:?Drugs?Have you used drugs other than those for medical reasons in the past 12 months??No ?Alcohol Screen?Did you have a drink containing alcohol in the past year??Yes ?How often did you have a drink containing alcohol in the past year??2 to 4 times a month (2 points) ?Points?2 ?Interpretation?Negative ???Miscellaneous:?Caffeine: yes, 2-3 cups per day. ?no Children. ?Exercise: yes, walking. ?Marital status: . ?Occupation: Works [id number]. * Medications:?TakingTrulicity 3 MG/0.5ML Solution Pen-injector as directed Subcutaneous metFORMIN HCl Aspirin 81 MG Tablet Chewable 1 tablet Orally Once a dayLisinopril 40 MG Tablet 1 tablet Orally Once a daybuPROPion HCl Toprol XL 50 MG Tablet Extended Release 24 Hour 1 tablet Orally Once a dayCrestor 20 MG Tablet 1 tablet Orally Once a dayTaking Trulicity 3 MG/0.5ML Solution Pen-injector as directed Subcutaneous Taking metFORMIN HCl Taking Aspirin 81 MG Tablet Chewable 1 tablet Orally Once a dayTaking Lisinopril 40 MG Tablet 1 tablet Orally Once a dayTaking buPROPion HCl Taking Toprol XL 50 MG Tablet Extended Release 24 Hour 1 tablet Orally Once a dayTaking Crestor 20 MG Tablet 1 tablet Orally Once a dayNot-Taking/PRNCephalexin 500 MG Capsule 1 capsule Orally twice a dayMedication List reviewed and reconciled with the patientNot-Taking/PRN Cephalexin 500 MG Capsule 1 capsule Orally twice a dayMedication List reviewed and reconciled with the patient * Allergies:?N.K.D.A.yes[Aller gies Verified] Objective: * Vitals:?Ht: 5 ft 6 in, Wt:23 0, BMI:37.12, Shoe size:10.5, BP:122/82 mm Hg, BS: Not taken. * ???Past Orders: ???Lab:HEMOGLOBIN A1C (GLYCO HEMOGLOBIN) (Order Date - 12/12/2022) (Collection Date - 12/12/2022) ? Value Reference Range ?TOTAL HEMOGLOBIN (HGBA1C) 6.8 * Examination: ???Ophthalmology Referral: ?DIABETES EYE EXAM?Dermatologic: ?ULCER:? LOCATION,MedialT5, , SIZE, 8mm X 3 mm X 2mm, BASE, granular, RIM, hyperkeratotic, UNDERMINING, absent, TRACKING, Full thickness breakdown of skin, DRAINAGE, serosanguineous, mild, NECROTIC TISSUE, loosely-adherent, yellow slough, MALODOR, absent, CALOR, absent, ERYTHEMA, absent, PAIN ON PALPATION, present.? Assessment: * Assessment: 1.?Skin ulcer of toe of righ t foot, limited to breakdown of skin - L97.511, Response to treatment, Nonapplicable? Plan: * Treatment: * Procedures:?Debride skin< 25 sq cm:?Open wound?Physician of record performed open wound selective debridement of first 25 sq cm or less, of devitilized necrotic/nonviable soft tissue, fibrin, and exudate extending from the epidermis through the dermis, utilizing sharp dissection with sterile 15 blade, and/or tissue nippers. Sterile antibiotic dressing applied, ANESTHESIA- was accomplished TOPICALLY with Lidocaine Hydrochloride Jelly 2 percent. Hemostasis was achieved through direct pressure. Post debridement measurements:4 mm x 3 mm x 2 mm. Character of the wound post debridement is stable (40245).? * Procedure Codes:?07630 ACTIV E WOUND CARE/20 CM OR <, Modifiers: T5 * Follow Up:?prn * Images: * Sign off status: Completed true * Provider:?Angelic Luke DPM Date:?2023 Generated for Sanna land/Pino/eTransmitting on:?04/23/2024 03:58 PM EST History and Physical Notes * HPI (History of Present Illness) Category Sub-Category Detail Notes Category Not es Skin problems Treatments: Topical abx , soaks Examination Category Sub-Category Detail Notes Category Not es Dermatologic ULCER: LOCATION,MedialT 5, , SIZE, 8mm X 3 mm X 2mm, BASE, granular, RIM, hyperkeratotic, UNDERMINING, absent, TRACKING, Full thickness breakdown of skin, DRAINAGE, serosanguineous, mild, NECROTIC TISSUE, loosely-adherent, yellow slough, MALODOR, absent, CALOR, absent, ERYTHEMA, absent, PAIN ON PALPATION, present Ophthalmology Referral DIABETES EYE EXAM Diabeti c Retinopathy Screening:: Yes 03/28/23 Findings of Diabetic Eye Exam:: no retin opathy
--- OUTSIDE RECORDS SUMMARY | 2024-04-23 15:58 | XMS_ITS ---
[facility] [place] Address [address] [facility] [place] [address] Care Team Providers Care Trauma Therapist Name Role Phone Vito Campuzano MD Primary Care Provider Unavail able Black, Angelic Unavailable [phone] Allergies No Known Allergies REASON FOR VISIT Pcp- 03/04, Ingrown nail Medications Medication SIG (Take, Route, Fr equency, Duration) Notes Start Date End Date Status Lisinopril 40 MG 1 tablet Orally Once a day Active Cephalexin 500 MG 1 capsule Orally twi ce a day for 10 days 03/16/2023 Active Trulicity 3 MG/0.5ML as directed Subcutaneous Active metFORMIN HCl Active Aspirin 81 MG 1 tablet Orally Once a day Active buPROPion HCl Active Toprol XL 50 MG 1 tablet Orally Once a day Active Crestor 20 MG 1 tablet Orally Once a day Active Social History Tobacco Use: Social History [...] Are you an other tobacco user? No Vital Signs Height 5 ft 6 in in 03/16/2023 Weight 230 lbs 03/16/2023 BMI 37.12 kg/m2 03/16/2023 Blood pressure systolic 122 mm Hg 01/04/20 24 Blood pressure diastolic 78 mm Hg 024 Procedures Procedure Date Ordered Date Performed Result Body Sit e [id number] 03/16/2023 N/A Encounters Encounter Location Date Provider Diagnosis [facility] [address] [place] [address] 03/16/2023 Angelic Black Ingrown nail L60.0 Assessments Encounter Date Diagnosis (ICD Code) Assessment Notes Treatment Notes Treatment Clinical Notes Section Notes 03/16/2023 Ingrown nail (ICD-10 - L60.0) Plan Of Treatment Medication Medication Name Sig Start Date Stop Date Notes Cephalexin 500 MG 1 capsule Orally twice a day for 10 days 03/16/2023 Pending Test Test Name Order Date [id number] 03/16/2023 Next Appt Details Follow Up: 2-4 Weeks, Reason : Procedure Notes * Category Sub-Category Detail Notes Matricectomy (OP NOTE) Consent The patie nt was brought to the examination room and placed on the table in a supine position. The pre/so/postoperative course, risks, complications and alternatives were discussed, understood and accepted by the patient. No guarantees were given regarding the surgical outcome Procedure A digital prep with alcohol or betadine was performed. 3cc of 1 percent Xylocaine Plain local anesthetic was administered to the toe via digital block utilizing aseptic technique. A digital touriquet was applied. The affected toenail portion was undermined, incised and resected to the eponychium and matrix. It was noted to be significantly incurvated and hypertrophied. The nailbed and matrix were curetted and the nail groove, bed and matrix were cauterized with Phenol, 3 applications of 30 seconds each from a cotton tip applicator, no underling bone was identified. The surrounding skin was protected from the Phenol with Bacitracin ointment. The tourniquet was released and capillary fill time was intact to the digit. A sterile Bacitracin dressing was applied Disposition Disposition: The pat ient tolerated the procedure and anesthesia well and left in good condition, alert, oriented and stable in no acute distress. Local wound care instructions were discussed and dispensed. There were no complications and the prognosis is favorable, Recommended alternating/staggering Tylenol XS 2 tabs and Motrin 600mg q 6 hrs ea for discomfort, Rx narcotic postop pain meds were deferred Location Medial nail border , T5 Progress Notes * Yury HADDAD: 2 (62 yo M)Acc No.[id number]:03/16/2023 Progress Note Patient:?Yury Haddad Provider:?Angelic Luke DPM :1960???Age:62 Y???Sex:Male Jared e:03/16/2023 Address:[address] [place] [address] [facility] Pcp:Vito Campuzano MD Subjective: * Chief Complaints: * ???Pcp- 03/04Ingrown nail * Medical History:? * Surgical History:?Orthopedic Surgery appendectomy trigger finger release vasectomy torn bicept Ingrown Toe Nail * Hospitalization/Major Diagno stic Procedure:?Denies Past Hospitalization * Family History:?Mother: chapin so?Father: , heart attack.? * Social History:?Tobacco Use:?Tobacco [...] yes, walking. ?Marital status: . ?Occupation: Works [id number]. * Medications:?TakingTrulicity 3 MG/0.5ML Solution Pen-injector as directed Subcutaneous metFORMIN HCl Aspirin 81 MG Tablet Chewable 1 tablet Orally Once a dayLisinopril 40 MG Tablet 1 tablet Orally Once a daybuPROPion HCl Toprol XL 50 MG Tablet Extended Release 24 Hour 1 tablet Orally Once a dayCrestor 20 MG Tablet 1 tablet Orally Once a dayMedication List reviewed and reconciled with the patientTaking Trulicity 3 MG/0.5ML Solution Pen-injector as directed Subcutaneous Taking metFORMIN HCl Taking Aspirin 81 MG Tablet Chewable 1 tablet Orally Once a dayTaking Lisinopril 40 MG Tablet 1 tablet Orally Once a dayTaking buPROPion HCl Taking Toprol XL 50 MG Tablet Extended Release 24 Hour 1 tablet Orally Once a dayTaking Crestor 20 MG Tablet 1 tablet Orally Once a dayMedication List reviewed and reconciled with the patient * Allergies:?N.K.D.A.yes[Aller gies Verified] Objective: * Vitals:?Ht: 5 ft 6 in, Wt:23 0, BMI:37.12, Shoe size:10.5, BP:122/78 mm Hg, BS: not taken. * ???Past Orders: ???Lab:HEMOGLOBIN A1C (GLYCO HEMOGLOBIN) (Order Date - 12/12/2022) (Collection Date - 12/12/2022) ? Value Reference Range ?TOTAL HEMOGLOBIN (HGBA1C) 6.8 * Examination: ???Ophthalmology Referral: ?DIABETES EYE EXAM?Ingrown Nail: ?INSPECTION:?Reveals incurvation, pain on palpation, groove hypertrophy , groove ischemia , Medial nail border , T5.? Assessment: * Assessment: 1.?Ingrown nail - L60.0 (Tawnya bolanos)? Plan: * Treatment: * Procedures:?Matricectomy (OP NOTE):?Location?Medial nail border , T5.?Consent?The patient was brought to the examination room and placed on the table in a supine position. The pre/so/postoperative course, risks, complications and alternatives were discussed, understood and accepted by the patient. No guarantees were given regarding the surgical outcome.?Procedure?A digital prep with alcohol or betadine was performed. 3cc of 1 percent ?Xylocaine Plain local anesthetic was administered to the toe via digital block utilizing aseptic technique. A digital touriquet was applied. The affected toenail portion was undermined, incised and resected to the eponychium and matrix. It was noted to be significantly incurvated and hypertrophied. The nailbed and matrix were curetted and the nail groove, bed and matrix were cauterized with Phenol, 3 applications of 30 seconds each from a cotton tip applicator, no underling bone was identified. The surrounding skin was protected from the Phenol with Bacitracin ointment. The tourniquet was released and capillary fill time was intact to the digit. A sterile Bacitracin dressing was applied .?Disposition?Disposition: The patient tolerated the procedure and anesthesia well and left in good condition, alert, oriented and stable in no acute distress. Local wound care instructions were discussed and dispensed. There were no complications and the prognosis is favorable, Recommended alternating/staggering Tylenol XS 2 tabs and Motrin 600mg q 6 hrs ea for discomfort, Rx narcotic postop pain meds were deferred.? * Procedure Codes:?83482 REMOV AL OF NAIL BED, Modifiers: T5 A4550 STERILE TRAY * Follow Up:?2-4 Weeks * Images: * Sign off status: Completed true * Provider:?Angelic Luke DPM Date:?2023 Generated for Sanna land/Pino/Edin on:?04/23/2024 03:58 PM EST History and Physical Notes * Examination Category Sub-Category Detail Notes Category Not es Ingrown Nail INSPECTION: Reveals incurvat ion, pain on palpation, groove hypertrophy , groove ischemia , Medial nail border , T5 Ophthalmology Referral DIABETES EYE EXAM Diabeti c Retinopathy Screening:: Yes Findings of Diabetic Eye Exam:: no retin opathy
--- OUTSIDE RECORDS SUMMARY | 2024-04-23 15:58 | XMS_ITS | Patient Health Record ---
Author Organization [facility] Address [address] [facility] [place] [address] Care Team Providers Care Clinical Radiologist Name Role Phone Vito Campuzano MD Primary Care Provider Unavail able Black, Angelic Unavailable [phone] Allergies No Known Allergies Reason For Referral No Information Medications Medication SIG (Take, Route, Frequency, Duration) Notes Start Date End Date Status Toprol XL 50 MG 1 tablet Orally Once a day Active buPROPion HCl Active Cephalexin 500 MG 1 capsule Orally twi ce a day for 10 days 03/16/2023 Not-Taking Crestor 20 MG 1 tablet Orally Once a day Active metFORMIN HCl Active Trulicity 3 MG/0.5ML as directed Subcutaneous Active Lisinopril 40 MG 1 tablet Orally Once a day Active Aspirin 81 MG 1 tablet Orally Once a day Active Immunizations Vaccine Route Administration Date Status Comme nts Influenza Unknown 01/11/2023 Administered Social History Tobacco Use: Social History Observation [...] Problem Status W/U Status Risk Notes Problem Acquired hammer toe of left foot (070546042554405 3) Other hammer toe(s) (acquired), left foot (M20.42) Active confirmed Problem Type II diabetes mellitus without complication (536951005) Type 2 diabetes mellitus without complications (E11.9) Active confirmed Problem Ulcer of toe of right foot (disorder) (410183777806500 ) Skin ulcer of toe of right foot, limited to breakdown of skin (L97.511) Active confirmed Nonapplicable Problem Localized, primary osteoarthritis of the ankle and/or foot (034612803) Arthritis of joint of lesser toe, left (M19.072) Active confirmed Plan Of Treatment Pending Test Test Name Order Date [id number] Plate 02/09/2023 [id number] 03/16/2023 05850- Debride <25 sq cm 03/30/2023 Insurance Providers Payer Name Payer Address Payer Phone Subscriber Number Group Number Insured Name Patient Relationship to Insured Coverage Start Date Coverage End Date [facility] [address] [place] [address] [id number] Yury Santos Self - patient is the insured Medical (General) History Medical History History ICD Code Broken bones Cataracts covid-19 Diabetic High blood pressure Joint implants/screws Surgical History Surgery Date(Month/Year) Orthopedic Surgery appendectomy trigger finger release vasectomy torn bicept Ingrown Toe Nail
--- OUTSIDE RECORDS SUMMARY | 2024-04-23 15:58 | XMS_ITS | Patient Health Record ---
Author Organization [facility] Address [address] [place] [address] Care Team Providers Care Manager Culture Name Role Phone Justen (RETIRED) Vito KURTZ Primary Care Provid er Unavailable Jesse Sharma Jr Unavailable ALLERGIES No Known Allergies REASON FOR REFERRAL No Information MEDICATIONS Medication SIG (Take, Route, Frequency, Duration) Notes Start Date End Date Status metFORMIN HCl ER 750 MG Oral for 30 Active MiraLax (colon prep) 17 GM/SCOOP mixed with Gatorade or Crystal Light Orally begin at 5:00 p.m. the day before the procedure for 1 day 08/04/2021 Active Lisinopril 40 MG Oral for 30 A ctive Rosuvastatin Calcium 20 MG Oral for 90 Active Trulicity 0.75 MG/0.5ML Subcutaneous for 28 Active Metoprolol Succinate ER 50 MG Oral for 90 Active buPROPion HCl ER (XL) 300 MG Oral for 90 Active Toprol XL Active Crestor Active Sertraline HCl 50 MG Oral for 90 Active Zestril Active Wellbutrin Active IMMUNIZATIONS Vaccine Route Administration Date Status Comme nts Influenza Unknown 02/01/2021 Administered SOCIAL HISTORY Tobacco Use: Social History Observation Description Date Details (start date - stop date) Never Smoker NA - NA Sex Assigned At : Social History Observation Description Sex Assigned At Unknown Tobacco Use/Smoking Question Answer Notes Patient is a nonsmoker PROBLEMS Problem Type ICD Code Onset Dates Problem Status W/U Status Risk SNOMED Code Notes Problem Colon cancer screening (Z12.11) Active confirmed 805380317 Problem Encounter for other preprocedural examination (Z01.818) Active confirmed 790657372 Problem 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 [place] [phone] [id number] CIERRA HADDAD Self - patient is the insured MEDICAL (GENERAL) HISTORY Medical History History ICD Code HTN coronary artery disease with stent place ment type 2 diabetes Surgical History Surgery Date(Month/Year) tonsils broken arm appendix
--- OUTSIDE RECORDS SUMMARY | 2024-04-23 15:59 | XMS_ITS ---
Author Organization [facility] Address [address] [facility] [place] [address] Care Team Providers Care Fiberglass Ski Maker Name Role Phone Vito Camupzano MD Primary Care Provider Unavail Angelic Fleming [phone] Encounters Encounter Location Date Provider Diagnosis [facility] [address] [facility] [place] [address] 02/20/2023 Angelic Luek Plan Of Treatment No Information Progress Notes * Yury HADDAD MDOB: 2 (63 yo M)Acc No.[id number]:02/20/2023 Progress Notes Patient:?Yury HADDAD Provider:?Angelic Luke DPM :1960???Age:62 Y???Sex:Male Jared e:02/20/2023 Address:[address] [place] Pcp:Vito Campuzano MD Subjective: * Chief Complaints: * ??? * Medical History:? Objective: * Vitals:? Assessment: Plan: * Treatment: * Images: * The named appointment provid er may or may not be the originator of this progress note, and it is not deemed complete until electronically signed by the appointment provider. Sign off status: Pending * Provider:?Angelic Luke DPM Date:?2022 Generated for Printi ng/Faxing/eTransmitting on:?04/23/2024 03:58 PM EST
--- OUTSIDE RECORDS SUMMARY | 2024-04-23 15:59 | XMS_ITS ---
Author Organization [facility] Camp[facility] Address [address] [place], [place] [address] Care Team Providers Care Service Attendant Cafeteria Name Role Phone Vito Campuzano Primary Care Provider [phone] REASON FOR VISIT Message MEDICATIONS Medication SIG (Take, Route, Fr equency, Duration) Notes Start Date End Date Status Diclofenac Sodium 75 MG 1 tablet as need ed Orally Twice a day for 30 days 02/09/2024 Active Encounters Encounter Location Date Provider Diagnosis Vito Campuzano DO, FACP [address] [place], [place] [id number] 02/09/2024 Vito Campuzano PLAN OF TREATMENT Medication Medication Name Sig Start Date Stop Date Notes Diclofenac Sodium 75 MG 1 tablet as need ed Orally Twice a day for 30 days 02/09/2024
--- OUTSIDE RECORDS SUMMARY | 2024-04-23 15:59 | XMS_ITS ---
Author Organization [facility], [facility] Address [address] [place], [place] [address] Care Team Providers Care Sagger Filler Name Role Phone Vito Campuzano Primary Care Provider REASON FOR VISIT 3 month f/u Encounters Encounter Location Date Provider Diagnosis Vito Campuzano DO, FACP [address] [place], [place] [id number] 04/23/2024 Vito Campuzano PLAN OF TREATMENT No Information
--- OUTSIDE RECORDS SUMMARY | 2024-04-23 15:59 | XMS_ITS ---
Author Organization [facility] Address [address] [place], [place] [address] Care Team Providers Care Field Naturalist Name Role Phone Vito Campuzano Primary Care Provider [phone] REASON FOR VISIT Message Encounters Encounter Location Date Provider Diagnosis Vito Campuzano DO, FACP [address] [place], [place] [id number] 02/06/2024 Vito Campuzano PLAN OF TREATMENT No Information
== END 2024-04-23 15:40 | disposition home or self-care (01) ==
LOC: HO.HMCSH 15:11
PROVIDERS: PCP Internal Medicine; Visit Provider Internal Medicine
DX: F41.9 Anxiety disorder, unspecified (principal); I10 Essential (primary) hypertension; E11.9 Type 2 diabetes mellitus without complications; G47.33 Obstructive sleep apnea (adult) (pediatric); Z99.89 Dependence on other enabling machines and devices

== ENCOUNTER 2024-08-28 07:34 | Outpatient (REF) | payer OTHER, SELFPAY ==
--- OUTSIDE RECORDS SUMMARY | 2024-08-28 07:38 | XMS_ITS | Continuity of Care Document ---
Author Organization [facility] Address [address] [facility] [place] [facility] [address] [place] [address] Phone [phone] Social History Type Date Description Comments Sex Male Sex Unknown Medical Devices Description No Information Available Encounters Description No Information Available Assessments Description No Information Available Plan of Treatment No Information Available Functional Status Description No Information Available Mental Status Description No Information Available Referrals Description No Information Available
[2024-08-28 10:20] LABS: Appearance Urine Clear; Color Urine Yellow; Glucose Urine UA >=1000 mg/dL (Negative); Leukocyte Esterase Urine Negative (Negative); Nitrite Urine Negative (Negative); PH 5.5 (5.0-9.0); Specific Gravity - Urine 1.015 (1.005-1.025); UMIC TRIGGER UA YES; Urine Blood Negative (Negative); Urine Ketones Negative (Negative); Urine Protein 30 (1+) mg/dL (Neg-Trace)
[2024-08-28 10:22] LABS: MANUAL DIFF FLAG NO
[2024-08-28 10:24] LABS: Basophils Absolute Auto 0.1 X10*3/uL (0.0-0.2); Basophils Percent Auto 0.7 % (0-2); Eosinophils Absolute Auto 0.1 X10*3/uL (0.0-0.4); Eosinophils Percent Auto 1.6 % (0-4); Hematocrit 38.9 % (42.0-52.0); Hemoglobin 13.4 g/dl (14.0-18.0); Imm Gran Abs Auto 0.04 X10*3/uL (0.00-0.03); Imm Gran Pct Auto 0.5 % (0.0-0.4); Lymphocytes Absolute Auto 2.1 X10*3/uL (1.2-4.9); Lymphocytes Percent Auto 28.3 % (20-40); Mean Corpuscular HGB Conc 34.4 g/dl (31.0-36.0); Mean Platelet Volume 10.7 fL (9.4-12.4); Monocytes Absolute Auto 0.5 X10*3/uL (0.1-1.2); Monocytes Percent Auto 6.7 % (2-11); Neutrophils Absolute Auto 4.6 x10*3/uL (2.0-8.3); Neutrophils Percent Auto 62.2 % (45-73); Platelet Count 186 X10*3/uL (160-400); Red Blood Count 4.47 X10*6/uL (4.60-5.80); Red Cell Distribution Width 13.2 % (11.0-16.0); White Blood Count 7.4 X10*3/uL (4.8-10.8)
[2024-08-28 10:25] LABS: Bacteria Urine None Seen (None Seen); Hyaline Casts Urine 0-2 /LPF (0-2); RBC Urine 0-2 /HPF (0-2); Squamous Epithelial Cell Urine 0-2 /HPF (0-2); WBC Urine 0-5 /HPF (0-5)
[2024-08-28 10:39] LABS: Alanine Aminotransferase 32 U/L (0-40); Albumin Level 4.5 g/dL (3.5-5.0); Alkaline Phosphatase 85 U/L (39-117); Anion Gap 12 (12-20); Aspartate Amino Transferase 29 U/L (5-37); Bilirubin Total 0.3 mg/dL (0.0-1.0); Blood Urea Nitrogen 20 mg/dL (9-16); C Reactive Protein < 0.10 mg/dL (< or = 0.50); Calcium 9.6 mg/dL (8.4-10.2); Carbon Dioxide 22 mmol/L (22-29); Chloride 108 mmol/L (96-108); Estimated Glomerular Filt Rate > 60; Glucose Random 290 mg/dL (60-115); Sodium 138 mmol/L (135-145); Uric Acid 4.8 mg/dL (3.4-7.0)
[2024-08-28 11:00] LABS: Syphilis Screen Nonreactive (Nonreactive)
[2024-08-28 11:04] LABS: Erythrocyte Sedimentation Rate 10 MM/HR (0-15)
[2024-08-28 17:25] LABS: Estimated Average Glucose 140 mg/dL; Hemoglobin A1c % 6.5 % (<6.0)
[2024-08-29 09:23] LABS: Lyme Abs Screen <0.90 index
[2024-08-31 15:14] LABS: Quantiferon TB Gold Plus 1 NEGATIVE (NEGATIVE); TB Test (QFT) Mitogen -Nil >10.00 IU/mL; TB Test (QFT) Nil 0.08 IU/mL; TB Test (QFT) Plus TB1 -Nil 0.01 IU/mL
== END 2024-08-28 07:35 | disposition home or self-care (01) ==
LOC: HO.HMGCLDS 07:34
PROVIDERS: PCP Internal Medicine; Visit Provider Student in an Organized Health Care Education/Training Program
DX: E11.9 Type 2 diabetes mellitus without complications (principal); H20.9 Unspecified iridocyclitis
CPT/HCPCS: 36415; 80053; 81001; 83036; 84550; 85025; 85652; 86140; 86480; 86617; 86618; 86780

== ENCOUNTER 2024-08-31 10:43 | Outpatient (REF) | payer OTHER, SELFPAY ==
--- OUTSIDE RECORDS SUMMARY | 2024-08-31 10:46 | XMS_ITS | Continuity of Care Document ---
Author Organization [facility] Address [address] [facility] [place] [facility] [address] [place] [address] Phone [phone] Social History Type Date Description Comments Sex Male Sex Unknown Medical Devices Description No Information Available Encounters Description No Information Available Assessments Description No Information Available Plan of Treatment No Information Available Functional Status Description No Information Available Mental Status Description No Information Available Referrals Description No Information Available
[2024-09-03 22:18] LABS: Lysozyme, Serum 5.2 mcg/mL (5.0-11.0)
== END 2024-08-31 10:44 | disposition home or self-care (01) ==
LOC: HO.LAB 10:43
PROVIDERS: PCP Internal Medicine; Visit Provider Student in an Organized Health Care Education/Training Program
DX: H20.9 Unspecified iridocyclitis (principal)
CPT/HCPCS: 36415; 85549

== ENCOUNTER 2024-11-29 07:06 | Outpatient (REF) | payer OTHER, SELFPAY ==
--- OUTSIDE RECORDS SUMMARY | 2024-11-29 07:09 | XMS_ITS ---
Continuity of Care Document (CCD) Created on: November 29, 2024 Yury Santos External Reference #: [id number] : [id number] Sex: Male Author Organization [facility] Address [address] [facility] [place] [facility] [address] [place] [address] Phone [phone] Social History Type Date Description Comments Sex Male Sex Unknown Medical Devices Description No Information Available Encounters Description No Information Available Assessments Description No Information Available Plan of Treatment No Information Available Functional Status Description No Information Available Mental Status Description No Information Available Referrals Description No Information Available
--- OUTSIDE RECORDS SUMMARY | 2024-11-29 07:09 | XMS_ITS | Continuity of Care Document ---
Author Organization [facility] Address [address] [address] Insurance Providers Payer Plan Claims Address Claims Phone Policy Number Group Number Relation Employer Guarantor Name Guarantor Guarantor Address Guarantor Phone [facility], [address], [facility] [place] [id number] tel:[phone] [id number] Self Yury Santos [address] [place] [address] Problems Condition ICD9 code ICD10 code SNOMED code Start Date End Date S tatus Encounter for screening for other metabolic disorders Z13.228 Results No Results Allergies, adverse reactions, alerts No known allergies and adverse reactions Medications No administered medications reported Vital Signs No vital signs reported Social History No smoking Hx information available
[2024-11-29 10:23] LABS: MANUAL DIFF FLAG NO
[2024-11-29 10:29] LABS: Hematocrit 39.3 % (42.0-52.0); Hemoglobin 13.6 g/dl (14.0-18.0); Imm Gran Abs Auto 0.04 X10*3/uL (0.00-0.03); Imm Gran Pct Auto 0.5 % (0.0-0.4); Lymphocytes Absolute Auto 2.2 X10*3/uL (1.2-4.9); Mean Corpuscular HGB Conc 34.6 g/dl (31.0-36.0); Mean Corpuscular Hemoglobin 29.8 pg (27.0-33.0); Mean Corpuscular Volume 86.0 fL (80.0-98.0); NRBC Abs Auto 0.000 X10*3/uL (0.0-0.012); NRBC Pct Auto 0.0 /100WBC (0.0-0.2); Platelet Count 209 X10*3/uL (160-400); Red Blood Count 4.57 X10*6/uL (4.60-5.80); White Blood Count 7.4 X10*3/uL (4.8-10.8)
[2024-11-29 10:52] LABS: Total Hemoglobin (HGBA1C) 3490.1613 umol/L
[2024-11-29 10:54] LABS: Alanine Aminotransferase 27 U/L (0-40); Albumin Level 4.7 g/dL (3.5-5.0); Alkaline Phosphatase 71 U/L (39-117); Anion Gap 12 (12-20); Aspartate Amino Transferase 36 U/L (5-37); Blood Urea Nitrogen 16 mg/dL (9-16); Calcium 9.7 mg/dL (8.4-10.2); Carbon Dioxide 25 mmol/L (22-29); Chloride 108 mmol/L (96-108); Cholesterol 109 mg/dL (<200); Estimated Glomerular Filt Rate > 60; HDL Cholesterol 34 mg/dL (>40); Magnesium 1.6 mg/dL (1.6-2.6); Potassium 4.5 mmol/L (3.3-5.1); Sodium 140 mmol/L (135-145); Total Protein 7.4 g/dL (6.5-8.0); Triglycerides 159 mg/dL (<150)
[2024-11-29 11:05] LABS: Appearance Urine Clear; Glucose Urine UA Negative (Negative); PH 5.5 (5.0-9.0); Specific Gravity - Urine 1.015 (1.005-1.025); UMIC TRIGGER UACC YES
[2024-11-29 11:25] LABS: PSA,Total (Free>4and<10) 1.65 ng/mL (0.00-4.00)
[2024-11-29 11:34] LABS: Microalbum/Creatinine Ratio Ur 252.0 ug/mg cr (<30)
[2024-11-29 11:40] LABS: Folate 6.5 ng/mL (> or = 4.0); Vitamin B12 269 pg/mL (200-900)
== END 2024-11-29 07:07 | disposition home or self-care (01) ==
LOC: HO.HMGCLDS 07:06
PROVIDERS: PCP Internal Medicine; Visit Provider Physician Assistant Medical
DX: Z00.00 Encounter for general adult medical examination without abnormal findings (principal); E11.9 Type 2 diabetes mellitus without complications; Z12.5 Encounter for screening for malignant neoplasm of prostate
CPT/HCPCS: 36415; 80053; 80061; 80076; 81001; 81003; 82043; 82248; 82306; 82570; 82607; 82746; 83036; 83735; 84153; 84443; 85025; 86140

== ENCOUNTER 2024-12-03 08:30 | Outpatient (AMB) | payer OTHER, SELFPAY ==
--- NOTE | 2024-12-03 08:34 | A.OFFPC_ITS ---
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: No Accompanied by: Self / Same As Patient Allergies No Known Allergies Allergy (Verified 12/05/24 07:06) Medication List - Last Reconciled 12/03/24 by Law Leong MD aspirin 81 mg PO DAILY bupropion HCl XL 150 mg PO QAM diclofenac sodium 75 mg PO BID PRN dulaglutide 3 mg (0.5 mL) subcut QWEEK 90 days lisinopril 40 mg PO DAILY metformin ER 750 mg PO TID metoprolol succinate ER 50 mg PO DAILY NS rosuvastatin 20 mg PO DAILY tamsulosin 0.4 mg PO BEDTIME Tobacco use date assessed: 12/03/24 Dental Screening Dental Screen Date: 12/03/24 Did you have a dental visit in the last 12 months?: Yes HPI Follow up - see comments HPI Details 64-year-old male presents to the office to discuss his chronic medical conditions. Patient has noticed that his handwriting is progressively getting worse. While writing, he tends to shake. The movements are involuntary at times. He has no difficulty buttoning his shirt, combing his hair, brushing teeth or doing any fine motor skills. Does not report any difficulty in drinking hot beverages. Able to function and do all activities of daily living. Blood pressure and blood sugars have been in range. [facility] Medical History Anxiety LINA on CPAP Hx of fracture of arm Diabetes CAD (coronary artery disease) HTN (hypertension) Surgical History Hx of colonoscopy (~09/03/21) Hx of sinus surgery Hx of thumb surgery Hx of LASIK Hx of tonsillectomy Hx of appendectomy Hx of heart artery stent Family History Mother No problems noted. Father Heart disease Social History Housing: House Are you a primary care team coordinator scheduler to a significant other at home: No Do you presently have visiting nurse or other home services: No Patient Tobacco Use Status: Former Tobacco user Tobacco use type: Cigarette service: No Current occupational status: employed Cognitive needs: No Hearing needs: No Vision needs: Yes (rx glasses) Questionnaire PHQ-9 Over the last 2 weeks, how often have you been bothered by any of the following problems? 1. Little interest or pleasure in doing things: not at all 2. Feeling down, depressed, or hopeless: not at all 3. Trouble falling or staying asleep, or sleeping too much: not at all 4. Feeling tired or having little energy: not at all 5. Poor appetite or overeating: not at all 6. Feeling bad about yourself - or that you are a failure or have let yourself or your family down: not at all 7. Trouble concentrating on things, such as reading the newspaper or watching television: not at all 8. Moving or speaking so slowly that other people could have noticed. Or the opposite - being so fidgety or restless that you have been moving around a lot more than usual: not at all 9. Thoughts that you would be better off or of hurting yourself in some way: not at all Total score: 0 Source: Developed by Drs. Vito Cesar, Parvin Paz, Derik Gates and colleagues, with an educational glen from [employer]. KEI-7 AMB Questionnaire KEI-7 Date KEI - 7 assessed: 12/03/24 Feeling nervous, anxious, or on edge: 0 = Not at all Not being able to stop or control worryin = Not at all Worrying too much about different things: 0 = Not at all Trouble relaxin = Not at all Being so restless that it is hard to sit still: 0 = Not at all Becoming easily annoyed or irritable: 0 = Not at all Feeling afraid as if something awful might happen: 0 = Not at all Total KEI-7 score (0-4 normal; 5-9 mild; 10-14 moderate; 15-21 severe): 0 Source: Developed by Drs. Vito Cesar, Parvin Paz, Derik Gates and colleagues, with an educational glen from [employer]. Physical exam (Primary Care) Vital Signs: Last Vital Signs Temp 97.2 F 12/03/24 08:38 Pulse 90 12/03/24 08:38 Resp 16 12/03/24 08:38 BP 140/70 H 12/03/24 08:38 Pulse Ox 97 12/03/24 08:38 Oxygen Delivery Method Room Air 12/03/24 08:38 BMI result Body Mass Index 38.2 Tobacco/Smoking Status: Tobacco use Status Tobacco use date assessed 12/03/24 12/03/24 08:36 Patient Tobacco Use Status Former Tobacco user 12/03/24 08:34 Tobacco use type Cigarette 12/03/24 08:34 PHQ-9: PHQ-9 Score PHQ-9: Total score 0 12/03/24 09:31 Const General: cooperative and healthy appearing Nutritional Appearance: well nourished Orientation/consciousness: patient oriented x3 Limitations: no limitations HENMT Head: Yes normal to inspection Eyes General: appearance normal, both eyes and all related structures Neck Neck: Yes normal visual inspection Chest Chest palpation & inspection: normal palpation of entire chest wall Resp Effort & Inspection: normal respiratory effort Neuro Other: Outstretched hands, fine tremor noticed. The tremors were exaggerated when a paper towel was placed on the dorsal side of the right hand when it was outstretched. Motor strength, gait and cerebellar testing were all in range. General: patient oriented x3 Office Procedures Flu Questionnaire Does the patient have a severe egg allergy?: No Does the patient have severe life threatening allergies?: No Does the patient have a fever or illness today?: No Has the patient ever had Guillain-[place] Syndrome?: No Has the patient ever had any past reaction to a flu shot?: No Immunizations Fluarix [id number] (PF) 45 mcg (15 mcg x 3)/0.5 mL IM syringe Performing Provider: Law Leong MD [facility] Administered by: NABIL Tom on 12/03/24 09:05 Dose Route Admin Location Dispensed Lot Number Expiration Date [facility] Hog Slaughte[employer] 0.5 mL IM Left Deltoid 0.5 mL [id number] 09/09/26 [id number] [employer] VIS Given Date VIS Provided VIS Publication Date 12/03/24 Single Vaccine 24 Eligibility Eligibility Date Funding Source Not VF Eligible 12/03/24 Private Coding Level of Care Code Est Pt Level 4 (17022) Complex EM visit Add On G2211 Diagnoses Tremor R25.1 Assessment & Plan Assessment & Plan (1) Tremor: Code(s): R25.1 - Tremor, unspecified Plan: Most likely resting fine tremors. Movement disorder very unlikely. However a neurology consult will be obtained for a definite diagnosis. Orders: Orders Influenza [id number] Immunization 12/03/24 Z23 - Encounter for immunization Referrals Neurology Referral R25.1 - Tremor, unspecified Medications: Refilled diclofenac sodium 75 mg PO BID PRN 60 tabs 1RF for pain
[2024-12-03 08:38] VITALS: BP 140/70; PULSE 90; RESP 16; TEMP 36.2; O2SAT 97; BMI 38.2
--- OUTSIDE RECORDS SUMMARY | 2024-12-03 09:27 | XMS_ITS | Continuity of Care Document ---
Author Organization [facility] Address [address] [facility] [address] [place] [address] Phone [phone] Social History Type Date Description Comments Sex Male Sex Unknown Medical Devices Description No Information Available Encounters Description No Information Available Assessments Description No Information Available Plan of Treatment No Information Available Functional Status Description No Information Available Mental Status Description No Information Available Referrals Description No Information Available
== END 2024-12-03 09:30 | disposition home or self-care (01) ==
LOC: HO.HMCSH 08:30
PROVIDERS: PCP Internal Medicine; Visit Provider Internal Medicine
DX: Z23 Encounter for immunization (principal)

== ENCOUNTER → 2024-12-03 08:30 | Outpatient (BNVA) | payer OTHER, SELFPAY | PROVIDERS: PCP Internal Medicine; Visit Provider Internal Medicine | DX: R25.1 Tremor, unspecified (principal); Z23 Encounter for immunization | CPT/HCPCS: 90471; 90656; 96127 ==